=== PATIENT | female | born 2000 | race Caucasian/White ===

== ENCOUNTER 2021-01-31 19:51 | Emergency (ER) | payer BC ==
[2021-01-31 21:14] LABS: Appearance CLOUDY (CLEAR); Bacteria FEW /HPF (NEGATIVE); Bilirubin NEGATIVE (NEGATIVE); Blood SMALL Ery/ul (0-5); Epithelial Cells RARE /HPF (FEW); Glucose NEGATIVE (NEGATIVE); Ketones NEGATIVE (NEGATIVE); Leukocyte Esterase LARGE (NEGATIVE); Nitrite NEGATIVE (NEGATIVE); Non-Squamous Epithelial Cells RARE /HPF (FEW); Protein,Urine Dip 100 (Negative); Specific Gravity 1.006 (1.005-1.025); Urobilinogen NEGATIVE mg/dL (0-1); WBC >100 /HPF (0-5)
[2021-01-31] MEDS ORDERED: Macrobid 100MG Capsule PO ONE (21:19)
[2021-01-31] MEDS ORDERED: PYRIDIUM 200 MG PO ONE (21:19)
--- NOTE | 2021-01-31 21:26 | ERPHSYRPT ---
- History of Present Illness Time Seen by Provider: 01/31/21 21:26 Source: patient Exam Limitations: no limitations Patient Subjective Stated Complaint: pt states she has been having pain in her lower back since yesterday and bladder pain today. states she has frequency and pain with urination Triage Nursing Assessment: pt alert and oriented, answers questions approp. pt ambulatory with steady gait noted. respirations nonlabored. skin pink warm and dry. urine yellow, cloudy with sediment Physician History: Patient is a 20-year-old female presents to our emergency department with complaints of urinary frequency, dysuria and mild low back pain. Symptoms started yesterday. Low back pain started today. No radiation. No fever. No nausea or vomiting. No abdominal pain. Symptoms are mild to moderate in intensity. Patient declined pain medication. Patient is otherwise healthy. She voices no other complaints concerns at this time. Timing/Duration: yesterday Severity: mild Modifying Factors: Improves With: nothing Associated Symptoms: No nausea, No vomiting, No abdominal pain, No shortness of breath, No heartburn, No diaphoresis, No cough, No chills, No chest pain, No fever, No headaches, No malaise, No syncope, No weakness Allergies/Adverse Reactions: No Known Drug Allergies Allergy (Verified 01/31/21 21:06) Home Medications: Norgestimate-Ethinyl Estradiol [Tri-Lo-Jazmine Tablet] 1 each PO DAILY 01/31/21 [History] Hx Tetanus, Diphtheria Vaccination/Date Given: Yes Hx Influenza Vaccination/Date Given: No Hx Pneumococcal Vaccination/Date Given: No Immunizations Up to Date: Yes Travel Risk - International Travel Have you traveled outside of the country in past 3 weeks: No - Coronavirus Screening Are you exhibiting any of the following symptoms?: No Close contact with a COVID-19 positive Pt in past 14-21 Days: No - Vaccine Status Have you recieved a Covid-19 vaccination: No - Review of Systems Constitutional: No Symptoms, No Fever, No Chills Eyes: No Symptoms Ears, Nose, & Throat: No Symptoms Respiratory: No Symptoms, No Cough, No Dyspnea Cardiac: No Symptoms, No Chest Pain, No Edema, No Syncope Abdominal/Gastrointestinal: No Symptoms, No Abdominal Pain, No Nausea, No Vomiting, No Diarrhea Genitourinary Symptoms: No Symptoms, No Dysuria Musculoskeletal: No Symptoms, No Back Pain, No Neck Pain Skin: No Symptoms, No Rash Neurological: No Symptoms, No Dizziness, No Focal Weakness, No Sensory Changes Psychological: No Symptoms Endocrine: No Symptoms Hematologic/Lymphatic: No Symptoms Immunological/Allergic: No Symptoms All Other Systems: Reviewed and Negative - Past Medical History Pertinent Past Medical History: No - Past Surgical History Past Surgical History: Yes Gastrointestinal: Appendectomy - Social History Smoking Status: Never smoker Exposure to second hand smoke: Yes Drug Use: none Patient Lives Alone: No - Female History Hx Last Menstrual Period: 1 week Hx Now: No - Nursing Vital Signs Nursing Vital Signs: Initial Vital Signs Temperature 98.9 F 01/31/21 20:57 Pulse Rate 105 H 01/31/21 20:57 Respiratory Rate 18 01/31/21 20:57 Blood Pressure 117/64 01/31/21 20:57 O2 Sat by Pulse Oximetry 100 01/31/21 20:57 Pain Scale Pain Intensity 7 - Physical Exam General Appearance: no apparent distress, alert Eye Exam: PERRL/EOMI, eyes nml inspection Ears, Nose, Throat Exam: normal ENT inspection, TMs normal, pharynx normal, moist mucous membranes Neck Exam: normal inspection, non-tender, supple, full range of motion Respiratory Exam: normal breath sounds, lungs clear, No respiratory distress Cardiovascular Exam: regular rate/rhythm, normal heart sounds, normal peripheral pulses Gastrointestinal/Abdomen Exam: soft, normal bowel sounds, other (Suprapubic tenderness to palpation. No CVA tenderness to palpation.), No tenderness, No m ass Back Exam: normal inspection, normal range of motion, No CVA tenderness, No vertebral tenderness Extremity Exam: normal inspection, normal range of motion, pelvis stable Neurologic Exam: alert, oriented x 3, cooperative, normal mood/affect, nml cerebellar function, No motor deficits Skin Exam: normal color, warm, dry, No rash Lymphatic Exam: No adenopathy SpO2 Interpretation: normal SpO2: 100 O2 Delivery: Room Air - Course Nursing assessment & vital signs reviewed: Yes Ordered Tests: Active Orders 24 hr Category Date Time Status CULTURE,URINE Stat Lab 01/31/21 20:59 Received HCG,QUALITATIVE URINE Stat Lab 01/31/21 20:59 Completed UA W/RFX UR CULTURE Stat Lab 01/31/21 20:59 Completed Medication Summary Discontinued Medications Generic Name Dose Route Start Last Admin Trade Name Freq PRN Reason Stop Dose Admin Nitrofurantoin Macrocrystals 100 mg 01/31/21 21:19 Macrobid 100mg Capsule PO 01/31/21 21:20 STAT ONE Phenazopyridine HCl 100 mg 01/31/21 21:19 Pyridium 200 Mg PO 01/31/21 21:20 STAT ONE Lab/Rad Data: Laboratory Results 01/31/21 01/31/21 Range/Units 20:59 20:59 Urine Color YELLOW (YELLOW) Urine Appearance CLOUDY (CLEAR) Urine pH 8.0 (5-6) Ur Specific [place] 1.006 (1.005-1.025) Urine Protein 100 (Negative) Urine Ketones NEGATIVE (NEGATIVE) Urine Blood SMALL (0-5) Jhony/ul Urine Nitrite NEGATIVE (NEGATIVE) Urine Bilirubin NEGATIVE (NEGATIVE) Urine Urobilinogen NEGATIVE (0-1) mg/dL Ur Leukocyte Esterase LARGE (NEGATIVE) Urine WBC (Auto) >100 (0-5) /HPF Urine RBC (Auto) 16-25 (0-2) /HPF U Epithel Cells (Auto) RARE (FEW) /HPF Urine Bacteria (Auto) FEW (NEGATIVE) /HPF U Non-Squamous Epi Cells RARE (FEW) /HPF Urine Culture Reflexed YES (NO) Urine Glucose NEGATIVE (NEGATIVE) mg/dL Urine HCG, Qual NEGATIVE (Negative) - Progress Progress: improved Progress Note: Patient received a dose of Macrobid and Pyridium in our ED. a prescription for Macrobid was forwarded to patient's pharmacy. Patient will take her medications up in the morning. Patient voices no other complaints at this time. Patient states is ready for discharge. Will discharge at this time. Urine cultures pending. Patient agrees to follow-up with primary care doctor within 48 hours for reevaluation. 01/31/21 21:31 01/31/21 21:32 Counseled pt/family regarding: lab results, diagnosis, need for follow-up - Departure Departure Disposition: Home Clinical Impression: UTI (urinary tract infection) Condition: Stable Critical Care Time: No Additional Instructions: Discharge/Care Plan RAQUEL ANDERSON was seen on 01/31/21 in the Emergency Room. The patient was counseled regarding Diagnosis,Lab results, Imaging studies, need for follow up and when to return to the Emergency Room. Prescriptions given: Discharge Note I have spoken with the patient and/or caregivers. I have explained the patient's condition, diagnosis and treatment plan based on the information available to me at this time. I have answered the patient's and/or caregiver's questions and addressed any concerns. The patient and/or caregivers have as good understanding of the patient's diagnosis, condition and treatment plan as can be expected at this point. The vital signs have been stable. The patient's condition is stable and appropriate for discharge from the emergency department. The patient will pursue further outpatient evaluation with the primary care physician or other designated or consulting physician as outlined in the discharge instructions. The patient and/or caregivers are agreeable to this plan of care and follow-up instructions have been explained in detail. The patient and/or caregivers have received these instruction. The patient/and or caregivers are aware that any significant change in condition or worsening of symptoms should prompt an immediate return to this or the closest emergency department or call 911. Prescriptions: Nitrofurantoin Macro 100 mg [Macrobid 100MG Capsule] 100 mg PO BID 7 Days #14 capsule
[2021-01-31] MEDS ORDERED: PYRIDIUM 200 MG ONE (21:27)
[2021-01-31] MEDS ORDERED: Macrobid 100MG Capsule ONE (21:27)
[2021-01-31 21:47] VITALS: PULSE 91
[2021-01-31 22:11] VITALS: BP 124/58; O2SAT 97
== END 2021-01-31 22:06 | disposition home or self-care (01) ==
LOC: ED 19:51
DX: N39.0 Urinary tract infection, site not specified (principal)
CPT/HCPCS: 81001; 84703; 87077; 87086; 87186; 99283; A9270-GY

== ENCOUNTER 2022-07-04 19:29 | Emergency (ER) | payer BC ==
[2022-07-04] MEDS ORDERED: Sodium Chloride 0.9% 1000 ML 1,000 ML IV STA (19:45)
[2022-07-04] MEDS ORDERED: Sodium Chloride 0.9% 1000 ML 1,000 ML ONE (19:53)
[2022-07-04 19:59] LABS: Absolute Neutrophil Ct (ANC) 8.94 x10^3/uL (1.4-6.9); Basophil (Absolute #) 0.05 x10^3/uL (0-0.4); Eosinophil % 0.4 % (0.00-5.0); Eosinophil (Absolute #) 0.05 x10^3/uL (0-0.5); Hematocrit 43.1 % (35-47); Hemoglobin 14.2 g/dL (12.0-16.0); Lymphocyte (Absolute #) 2.37 x10^3/uL (1.0-4.6); Lymphocytes % 19.4 % (24.0-44.0); Mean Cell Volume 88.1 fL (78-100); Mean Corpuscular Hgb Concent. 32.9 g/dL (32-36); Mean Platelet Volume 9.6 fL (7.5-11.0); Monocyte (Absolute #) 0.73 x10^3/uL (0.0-1.3); Neutrophil % 73.2 % (36.0-66.0); Platelet Count 368 x10^3/uL (150-450); Red Blood Count 4.89 x10^6/uL (4.1-5.4); Red Cell Distribution Width 12.1 % (11.5-14.0); White Blood Count 12.2 x10^3/uL (4.0-10.5)
[2022-07-04 20:06] LABS: Appearance CLEAR (CLEAR); Bilirubin NEGATIVE (NEGATIVE); Dipstick done @ ? MAIN LAB; Glucose NEGATIVE (NEGATIVE); Ketones NEGATIVE (NEGATIVE); Nitrite NEGATIVE (NEGATIVE); Protein,Urine Dip 30 (Negative); RBC MODERATE Ery/ul (0-5); Urobilinogen 0.2 mg/dL (0-1)
[2022-07-04 20:08] LABS: Bacteria RARE /HPF (NEGATIVE); Epithelial Cells FEW /HPF (FEW); Mucus SLIGHT /HPF (NEGATIVE); RBC 0-2 /HPF (0-2)
[2022-07-04 20:14] LABS: Urine Cultured Indicated? YES
[2022-07-04 20:18] LABS: ALBUMIN 4.8 g/dL (3.5-5.0); ALKALINE PHOSPHATASE 163 U/L (38-126); ANION GAP 14.7 MEQ/L (5-15); BLOOD UREA NITROGEN 11 mg/dL (7-17); CHLORIDE 104 mmol/L (98-107); Calcium 9.4 mg/dL (8.4-10.2); Carbon Dioxide 22 mmol/L (22-30); EST GLOMERULAR FILTRATION RATE > 60.0 ML/MIN; Glucose 98 mg/dL (74-106); SGOT/AST 43 U/L (14-36); SGPT/ALT 25 U/L (0-35); SODIUM 139 mmol/L (137-145); Total Protein 8.7 g/dL (6.3-8.2)
[2022-07-04] MEDS ORDERED: ROCEPHIN 1 Gm-D5w 50 ml Bag** 1 G/50 ML IVPB IV STA (20:19)
[2022-07-04] MEDS ORDERED: Klor Con PO ONE ×2 (20:21→20:26)
[2022-07-04] MEDS ORDERED: ROCEPHIN 1 Gm-D5w 50 ml Bag** 1 G/50 ML IVPB IV ONE (20:26)
--- NOTE | 2022-07-04 20:26 | ERPHSYRPT ---
- History of Present Illness Time Seen by Provider: 07/04/22 19:45 Source: patient Exam Limitations: no limitations Patient Subjective Stated Complaint: abd pain, tender, diarrhea, vomiting x1 yesterday Triage Nursing Assessment: pt ambulated into ER without diff. Pt saw Dr. Savage today for abd pain and he informed her that she had a cyst that ruptured. Pt continues to have abd pain/tenderness, diarrhea x5 today, nausea, vomited x1 yesterday. Pt is concerned and just wants to make sure there's nothing else going on in her abd. Abd lg, soft with active bs x4 quad, tender on palpation. Physician History: Patient is 22-year-old female presents to emergency department for evaluation of abdominal pain x5 days. Patient has been experiencing some diarrhea. She had 1 bout of emesis today. Patient followed up with her primary care doctor today. Patient was advised that she may have had experienced a ruptured cyst. Patient is here because she wants to be sure that there is nothing more serious going on. No fever. Symptoms are mild to moderate in intensity. No specific worsening or improving factors. Patient states the pain is suprapubic and periumbilical. She denies a history of the same. She voices no other complaints or concerns at this time. Portions of this note were created with voice recognition technology. There may be grammatical, spelling, punctuation or sound alike errors Timing/Duration: day(s) (5 days) Severity: moderate Modifying Factors: Improves With: nothing Associated Symptoms: nausea, vomiting Allergies/Adverse Reactions: No Known Drug Allergies Allergy (Verified 07/04/22 19:49) Hx Tetanus, Diphtheria Vaccination/Date Given: Yes Hx Influenza Vaccination/Date Given: No Hx Pneumococcal Vaccination/Date Given: No Immunizations Up to Date: Yes Travel Risk - International Travel Have you traveled outside of the country in past 3 weeks: No - Coronavirus Screening Are you exhibiting any of the following symptoms?: Yes Symptoms: Vomiting/Diarrhea Close contact with a COVID-19 positive Pt in past 14-21 Days: No - Vaccine Status Have you recieved a Covid-19 vaccination: Yes Communications Controller: Moderna - Vaccination Dates Date of 2cond Vaccination (if applicable): . - Review of Systems Constitutional: No Symptoms, No Fever, No Chills Eyes: No Symptoms Ears, Nose, & Throat: No Symptoms Respiratory: No Symptoms, No Cough, No Dyspnea Cardiac: No Symptoms, No Chest Pain, No Edema, No Syncope Abdominal/Gastrointestinal: No Symptoms, No Abdominal Pain, No Nausea, No Vomiting, No Diarrhea Genitourinary Symptoms: No Symptoms, No Dysuria Musculoskeletal: No Symptoms, No Back Pain, No Neck Pain Skin: No Symptoms, No Rash Neurological: No Symptoms, No Dizziness, No Focal Weakness, No Sensory Changes Psychological: No Symptoms Endocrine: No Symptoms Hematologic/Lymphatic: No Symptoms Immunological/Allergic: No Symptoms All Other Systems: Reviewed and Negative - Past Medical History Pertinent Past Medical History: No - Past Surgical History Past Surgical History: Yes Gastrointestinal: Appendectomy - Social History Smoking Status: Never smoker Exposure to second hand smoke: Yes Drug Use: none Patient Lives Alone: No - Female History Hx Last Menstrual Period: 06/07/22 Hx Now: No - Nursing Vital Signs Nursing Vital Signs: Initial Vital Signs Temperature 97.0 F 07/04/22 19:37 Pulse Rate 107 H 07/04/22 19:37 Respiratory Rate 18 07/04/22 19:37 Blood Pressure 144/85 07/04/22 19:37 O2 Sat by Pulse Oximetry 99 07/04/22 19:37 Pain Scale Pain Intensity 3 - Physical Exam General Appearance: no apparent distress, alert Eye Exam: PERRL/EOMI, eyes nml inspection Ears, Nose, Throat Exam: normal ENT inspection, TMs normal, pharynx normal, moist mucous membranes Neck Exam: normal inspection, non-tender, supple, full range of motion Respiratory Exam: normal breath sounds, lungs clear, airway intact, No respiratory distress Cardiovascular Exam: regular rate/rhythm, normal heart sounds, normal peripheral pulses Gastrointestinal/Abdomen Exam: soft, normal bowel sounds, No tenderness, No mass Back Exam: normal inspection, normal range of motion, No CVA tenderness, No vertebral tenderness Extremity Exam: normal inspection, normal range of motion, pelvis stable Neurologic Exam: alert, oriented x 3, cooperative, normal mood/affect, nml cerebellar function, nml station & gait, sensation nml, No motor deficits Skin Exam: normal color, warm, dry, No rash Lymphatic Exam: No adenopathy SpO2 Interpretation: normal SpO2: 99 O2 Delivery: Room Air - Course Nursing assessment & vital signs reviewed: Yes - CT Exams Abdomen/Pelvis CT Interpretation: Tele-radiologist Report (No comps. Normal abdomen pelvis with incidental intrauterine IUD.) Ordered Tests: Active Orders 24 hr Category Date Time Status ABDOMEN AND PELVIS W/0 CONTRAS [CT] Stat Exams 07/04/22 19:44 Taken CBC W DIFF Stat Lab 07/04/22 19:56 Completed CMP Stat Lab 07/04/22 19:56 Completed CULTURE,URINE Stat Lab 07/04/22 19:56 Received HCG,QUALITATIVE URINE Stat Lab 07/04/22 19:56 Completed UA W/RFX CULTURE Stat Lab 07/04/22 19:56 Completed Medication Summary Generic Name Dose Route Start Last Admin Trade Name Freq PRN Reason Stop Dose Admin Magnesium Sulfate/Dextrose 100 mls @ 100 mls/hr 07/04/22 20:30 07/04/22 20:56 Magnesium 1 Gm / 100 Ml D5w IV 07/04/22 22:29 100 mls/hr Q1H LYUBOV Administration Discontinued Medications Generic Name Dose Route Start Last Admin Trade Name Freq PRN Reason Stop Dose Admin Sodium Chloride 1,000 mls @ 999 mls/hr 07/04/22 19:45 07/04/22 20:57 Sodium Chloride 0.9% 1000 Ml IV 07/04/22 20:45 Infused .Q1H1M STA Infusion Sodium Chloride Confirm 07/04/22 19:53 Sodium Chloride 0.9% 1000 Ml Administered 07/04/22 19:54 Dose 1,000 mls @ ud .ROUTE .STK-MED ONE Ceftriaxone Sodium/Dextrose 1 g in 50 mls @ 100 mls/hr 07/04/22 20:19 07/04/22 20:57 Rocephin 1 Gm-D5w 50 Ml Bag IV 07/04/22 20:48 Infused STAT STA Infusion Ceftriaxone Sodium/Dextrose Confirm 07/04/22 20:26 Rocephin 1 Gm-D5w 50 Ml Bag Administered 07/04/22 20:27 Dose 1 g in 50 mls @ ud IV .STK-MED ONE Potassium Chloride 40 meq 07/04/22 20:21 07/04/22 20:26 Potassium Chloride Tab 10 Meq Tab PO 07/04/22 20:22 40 meq STAT ONE Administration Potassium Chloride Confirm 07/04/22 20:26 Potassium Chloride Tab 10 Meq Tab Administered 07/04/22 20:27 Dose 40 meq PO .STK-MED ONE Lab/Rad Data: Laboratory Result Diagrams 07/04/22 19:56 07/04/22 19:56 Laboratory Results 07/04/22 07/04/22 07/04/22 Range/Units 19:56 19:56 19:56 WBC 12.2 H (4.0-10.5) x10^3/uL RBC 4.89 (4.1-5.4) x10^6/uL Hgb 14.2 (12.0-16.0) g/dL Hct 43.1 (35-47) % MCV 88.1 (78-100) fL MCH 29.0 (26-32) pg MCHC 32.9 (32-36) g/dL RDW 12.1 (11.5-14.0) % Plt Count 368 (150-450) x10^3/uL MPV 9.6 (7.5-11.0) fL Gran % 73.2 H (36.0-66.0) % Immature Gran % (Auto) 0.6 H (0.00-0.4) % Nucleat RBC Rel Count 0.0 (0.00-0.1) % Eos # (Auto) 0.05 (0-0.5) x10^3/uL Immature Gran # (Auto) 0.07 H (0.00-0.03) x10^3u/L Absolute Lymphs (auto) 2.37 (1.0-4.6) x10^3/uL Absolute Monos (auto) 0.73 (0.0-1.3) x10^3/uL Absolute Nucleated RBC 0.00 (0.00-0.01) x10^3u/L Lymphocytes % 19.4 L (24.0-44.0) % Monocytes % 6.0 (0.0-12.0) % Eosinophils % 0.4 (0.00-5.0) % Basophils % 0.4 (0.0-0.4) % Absolute Granulocytes 8.94 H (1.4-6.9) x10^3/uL Basophils # 0.05 (0-0.4) x10^3/uL Sodium 139 (137-145) mmol/L Potassium 3.0 L* (3.5-5.1) mmol/L Chloride 104 (98-107) mmol/L Carbon Dioxide 22 (22-30) mmol/L Anion Gap 14.7 (5-15) MEQ/L BUN 11 (7-17) mg/dL Creatinine 0.70 (0.52-1.04) mg/dL Estimated GFR > 60.0 ML/MIN Glucose 98 (74-106) mg/dL Calcium 9.4 (8.4-10.2) mg/dL Total Bilirubin 0.50 (0.2-1.3) mg/dL AST 43 H (14-36) U/L ALT 25 (0-35) U/L Alkaline Phosphatase 163 H (38-126) U/L Serum Total Protein 8.7 H (6.3-8.2) g/dL Albumin 4.8 (3.5-5.0) g/dL Urinalys Dipstick Clnc MAIN LAB Urine Color YELLOW (YELLOW) Urine Appearance CLEAR (CLEAR) Urine pH 7.0 (5-6) Ur Specific [place] 1.020 (1.005-1.025) POC Urine Protein Conf 30 (Negative) Urine Ketones NEGATIVE (NEGATIVE) Urine Nitrite NEGATIVE (NEGATIVE) Urine Bilirubin NEGATIVE (NEGATIVE) Urine Urobilinogen 0.2 (0-1) mg/dL Urine Leukocytes MODERATE (NEGATIVE) Urine WBC (Auto) 6-10 (0-5) /HPF Urine RBC (Auto) 0-2 (0-2) /HPF U Epithel Cells (Auto) FEW (FEW) /HPF Urine Bacteria (Auto) RARE (NEGATIVE) /HPF Urine RBC MODERATE (0-5) Jhony/ul Urine Mucus (Auto) SLIGHT (NEGATIVE) /HPF Ur Culture Indicated? YES Urine Glucose NEGATIVE (NEGATIVE) mg/dL Urine HCG, Qual (Negative) 07/04/22 Range/Units 19:56 WBC (4.0-10.5) x10^3/uL RBC (4.1-5.4) x10^6/uL Hgb (12.0-16.0) g/dL Hct (35-47) % MCV (78-100) fL MCH (26-32) pg MCHC (32-36) g/dL RDW (11.5-14.0) % Plt Count (150-450) x10^3/uL MPV (7.5-11.0) fL Gran % (36.0-66.0) % Immature Gran % (Auto) (0.00-0.4) % Nucleat RBC Rel Count (0.00-0.1) % Eos # (Auto) (0-0.5) x10^3/uL Immature Gran # (Auto) (0.00-0.03) x10^3u/L Absolute Lymphs (auto) (1.0-4.6) x10^3/uL Absolute Monos (auto) (0.0-1.3) x10^3/uL Absolute Nucleated RBC (0.00-0.01) x10^3u/L Lymphocytes % (24.0-44.0) % Monocytes % (0.0-12.0) % Eosinophils % (0.00-5.0) % Basophils % (0.0-0.4) % Absolute Granulocytes (1.4-6.9) x10^3/uL Basophils # (0-0.4) x10^3/uL Sodium (137-145) mmol/L Potassium (3.5-5.1) mmol/L Chloride (98-107) mmol/L Carbon Dioxide (22-30) mmol/L Anion Gap (5-15) MEQ/L BUN (7-17) mg/dL Creatinine (0.52-1.04) mg/dL Estimated GFR ML/MIN Glucose (74-106) mg/dL Calcium (8.4-10.2) mg/dL Total Bilirubin (0.2-1.3) mg/dL AST (14-36) U/L ALT (0-35) U/L Alkaline Phosphatase (38-126) U/L Serum Total Protein (6.3-8.2) g/dL Albumin (3.5-5.0) g/dL Urinalys Dipstick Clnc Urine Color (YELLOW) Urine Appearance (CLEAR) Urine pH (5-6) Ur Specific [place] (1.005-1.025) POC Urine Protein Conf (Negative) Urine Ketones (NEGATIVE) Urine Nitrite (NEGATIVE) Urine Bilirubin (NEGATIVE) Urine Urobilinogen (0-1) mg/dL Urine Leukocytes (NEGATIVE) Urine WBC (Auto) (0-5) /HPF Urine RBC (Auto) (0-2) /HPF U Epithel Cells (Auto) (FEW) /HPF Urine Bacteria (Auto) (NEGATIVE) /HPF Urine RBC (0-5) Jhony/ul Urine Mucus (Auto) (NEGATIVE) /HPF Ur Culture Indicated? Urine Glucose (NEGATIVE) mg/dL Urine HCG, Qual NEGATIVE (Negative) - Progress Progress: improved Progress Note: Patient reassessed. She feels much better. CT abdomen pelvis negative. Potassium was low. Patient received oral potassium replacement. UA positive for UTI. Patient received a dose of Rocephin in our ED. A prescription for Keflex was forwarded to patient's pharmacy. No indication for further work-up at this time. Will discharge home. Patient agrees to follow-up with primary care doctor within 48 hours for evaluation. Portions of this note were created with voice recognition technology. There may be grammatical, spelling, punctuation or sound alike errors 07/04/22 21:04 Counseled pt/family regarding: lab results, diagnosis, need for follow-up, rad results - Departure Departure Disposition: Home Clinical Impression: UTI (urinary tract infection), Leukocytosis, Hypokalemia, Diarrhea Condition: Stable Critical Care Time: No Referrals: STAS SAVAGE MD [Primary Care Provider] - Follow up/PCP as directed Additional Instructions: Discharge/Care Plan RAQUEL ANDERSON was seen on 07/04/22 in the Emergency Room. The patient was counseled regarding Diagnosis,Lab results, Imaging studies, need for follow up and when to return to the Emergency Room. Prescriptions given: Discharge Note I have spoken with the patient and/or caregivers. I have explained the patient's condition, diagnosis and treatment plan based on the information available to me at this time. I have answered the patient's and/or caregiver's questions and addressed any concerns. The patient and/or caregivers have as good understanding of the patient's diagnosis, condition and treatment plan as can be expected at this point. The vital signs have been stable. The patient's condition is stable and appropriate for discharge from the emergency department. The patient will pursue further outpatient evaluation with the primary care physician or other designated or consulting physician as outlined in the discharge instructions. The patient and/or caregivers are agreeable to this plan of care and follow-up instructions have been explained in detail. The patient and/or caregivers have received these instruction. The patient/and or caregivers are aware that any significant change in condition or worsening of symptoms should prompt an immediate return to this or the closest emergency department or call 911. Prescriptions: Cephalexin Mh 500 mg [Keflex 500 mg] 500 mg PO TID #21 cap
[2022-07-04] MEDS: Magnesium 1 Gm / 100 Ml D5W*** 100 ML IV SCH ×2 (20:56→21:25)
[2022-07-04] MEDS ORDERED: Magnesium 1 Gm / 100 Ml D5W*** 100 ML IV ONE ×2 (20:56→21:24)
[2022-07-04 21:56] VITALS: BP 107/67; PULSE 77; O2SAT 100
--- NOTE | 2022-07-05 08:48 | XRAY ---
Indication: Bilateral lower quadrant pain. Multiple contiguous axial images obtained through the abdomen and pelvis without contrast. Comparison: None Lung bases clear. Heart not enlarged. Stomach is mildly distended with food/fluid. Noncontrasted stomach and bowel loops appear nonobstructed. Previous appendectomy. Retroverted uterus with IUD in situ. No free fluid/air. Remaining liver, gallbladder, pancreas, spleen, adrenal glands, kidneys, ureters, bladder, uterus, and aorta are unremarkable for noncontrast exam. Osseous structures intact. No ventral or inguinal hernias. Impression: CT abdomen/pelvis without contrast exam is negative.
== END 2022-07-04 21:55 | disposition home or self-care (01) ==
LOC: ED 19:29
DX: N39.0 Urinary tract infection, site not specified (principal); D72.829 Elevated white blood cell count, unspecified; E87.6 Hypokalemia; R19.7 Diarrhea, unspecified; R10.33 Periumbilical pain; R10.2 Pelvic and perineal pain
CPT/HCPCS: 36000; 36415; 74176; 80053; 81015; 81025; 85025; 87086; 96365; 96367; 99284; J0696; J3475; A9270-GY

== ENCOUNTER 2022-09-17 12:09 | Emergency (ER) | payer BC ==
--- NOTE | 2022-09-17 12:44 | ERPHSYRPT ---
- History of Present Illness Historian: patient Exam Limitations: no limitations Patient Subjective Stated Complaint: pt here for lower back pain and abd pain for a couple days, was dx at clinic yesterday with UTI, pt had IUD removed 09/14 and is on antibotics. Triage Nursing Assessment: pt alert, resp easy, skin w/d/p. walked in, face mask in place, abd soft, no pain with urination Physician History: 22 yo wf w duy-umbilical pain x 6 days. Pain is 6/10 and described as an ache. It does not radiate. She had her IUD removed on 09/14/22 and was started on Bactrim yesterday after walk in clinic appointment where she was diagnosed w a UTI. Pt has N/V/D wo dysuria/hematuria/hematemesis/hematochezia/melena/fever. She has global lumbar pain. Pt has had her appendix removed. Cough/Fever/Coryza are all denied. Timing/Duration: day(s) (6 days) Quality: aching Abdominal Pain Onset Location: periumbilical Pain Radiation: no radiation, shoulder Severity of Pain-Current: moderate Modifying Factors: Improves With: nothing Associated Symptoms: denies symptoms, diarrhea, nausea, vomiting Previous symptoms: no prior history Allergies/Adverse Reactions: No Known Drug Allergies Allergy (Verified 07/04/22 19:49) Hx Tetanus, Diphtheria Vaccination/Date Given: Yes Hx Influenza Vaccination/Date Given: No Hx Pneumococcal Vaccination/Date Given: No Immunizations Up to Date: Yes Travel Risk - International Travel Have you traveled outside of the country in past 3 weeks: No - Coronavirus Screening Are you exhibiting any of the following symptoms?: No Close contact with a COVID-19 positive Pt in past 14-21 Days: No - Vaccine Status Have you recieved a Covid-19 vaccination: Yes [employer]: Moderna - Vaccination Dates Date of 2cond Vaccination (if applicable): 2020 - Review of Systems Constitutional: No Symptoms Eyes: No Symptoms Ears, Nose, & Throat: No Symptoms Respiratory: No Symptoms Cardiac: No Symptoms Abdominal/Gastrointestinal: No Symptoms, Abdominal Pain, Nausea, Vomiting, Diarrhea Genitourinary Symptoms: No Symptoms Musculoskeletal: No Symptoms Skin: No Symptoms Neurological: No Symptoms Psychological: No Symptoms Endocrine: No Symptoms, Excessive Sweating Immunological/Allergic: No Symptoms - Past Medical History Pertinent Past Medical History: No - Past Surgical History Past Surgical History: Yes Gastrointestinal: Appendectomy - Social History Smoking Status: Never smoker Exposure to second hand smoke: Yes Drug Use: none Patient Lives Alone: No - Female History Hx Last Menstrual Period: unsure Hx Now: No - Nursing Vital Signs Nursing Vital Signs: Initial Vital Signs Temperature 97.0 F 09/17/22 12:19 Pulse Rate 95 H 09/17/22 12:19 Respiratory Rate 18 09/17/22 12:19 Blood Pressure 123/73 09/17/22 12:19 O2 Sat by Pulse Oximetry 98 09/17/22 12:19 Pain Scale Pain Intensity 4 WNL - Physical Exam General Appearance: no apparent distress (In pain) Eye Exam: PERRL/EOMI, eyes nml inspection Ears, Nose, Throat Exam: normal ENT inspection, TMs normal, pharynx normal, moist mucous membranes Neck Exam: normal inspection, non-tender, supple, full range of motion Respiratory Exam: normal breath sounds, lungs clear, airway intact Cardiovascular Exam: regular rate/rhythm, normal heart sounds, normal peripheral pulses, capillary refill <2 sec, No murmur Gastrointestinal/Abdomen Exam: soft, normal bowel sounds, tenderness (Moderate duy-umbilical TTP wo guarding or rebound) Back Exam: CVA tenderness (Mild B), vertebral tenderness (Mild lumbar TTP) Extremity Exam: normal inspection, normal range of motion Neurologic Exam: alert, oriented x 3, cooperative, 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, normal mood/affect, nml cerebellar function, nml station & gait, sensation nml Skin Exam: normal color, warm, dry Lymphatic Exam: No adenopathy SpO2 Interpretation: normal SpO2: 98 O2 Delivery: Room Air - Course Nursing assessment & vital signs reviewed: Yes - CT Exams Abdomen/Pelvis CT Interpretation: Tele-radiologist Report (Nonspecific mild posterior pelvic peritoneal fluid) Ordered Tests: Active Orders 24 hr Category Date Time Status ABDOMEN AND PELVIS W/0 CONTRAS [CT] Stat Exams 09/17/22 13:56 Completed AMYLASE Stat Lab 09/17/22 12:33 Completed CBC W DIFF Stat Lab 09/17/22 12:33 Completed CMP Stat Lab 09/17/22 12:33 Completed CULTURE,URINE Stat Lab 09/17/22 12:43 Received HCG QUALITATIVE,SERUM Stat Lab 09/17/22 12:45 Completed LIPASE Stat Lab 09/17/22 12:33 Completed Lactic Acid Stat Lab 09/17/22 13:10 Completed UA W/RFX UR CULTURE Stat Lab 09/17/22 12:43 Completed Medication Summary Discontinued Medications Generic Name Dose Route Start Last Admin Trade Name Lucy PRN Reason Stop Dose Admin Sodium Chloride 1,000 mls @ 999 mls/hr 09/17/22 13:10 09/17/22 14:26 Sodium Chloride 0.9% 1000 Ml IV 09/17/22 14:10 Infused .Q1H1M STA Infusion Sodium Chloride Confirm 09/17/22 13:19 Sodium Chloride 0.9% 1000 Ml Administered 09/17/22 13:20 Dose 1,000 mls @ ud .ROUTE .STK-MED ONE Ceftriaxone Sodium/Dextrose 1 g in 50 mls @ 100 mls/hr 09/17/22 14:12 0 09/17/22 14:46 Rocephin 1 Gm-D5w 50 Ml Bag IV 09/17/22 14:41 Infused STAT STA Infusion Ceftriaxone Sodium/Dextrose Confirm 09/17/22 14:12 Rocephin 1 Gm-D5w 50 Ml Bag Administered 09/17/22 14:13 Dose 1 g in 50 mls @ ud IV .STK-MED ONE Ketorolac Tromethamine 15 mg 09/17/22 12:49 09/17/22 12:54 Ketorolac Tromethamine 30 Mg/Ml Inj IV 09/17/22 12:50 15 mg STAT ONE Administration Ketorolac Tromethamine Confirm 09/17/22 12:51 Ketorolac Tromethamine 30 Mg/Ml Inj Administered 09/17/22 12:52 Dose 30 mg .ROUTE .STK-MED ONE Ondansetron HCl 4 mg 09/17/22 12:49 09/17/22 12:53 Ondansetron Hcl 4 Mg/2 Ml Vial IV 09/17/22 12:50 4 mg STAT ONE Administration Ondansetron HCl Confirm 09/17/22 12:51 Ondansetron Hcl 4 Mg/2 Ml Vial Administered 09/17/22 12:52 Dose 4 mg .ROUTE .STK-MED ONE Lab/Rad Data: Laboratory Result Diagrams 09/17/22 12:33 09/17/22 12:33 Laboratory Results 09/17/22 09/17/22 09/17/22 Range/Units 13:10 12:52 12:45 WBC (4.0-10.5) x10^3/uL RBC (4.1-5.4) x10^6/uL Hgb (12.0-16.0) g/dL Hct (35-47) % MCV (78-100) fL MCH (26-32) pg MCHC (32-36) g/dL RDW (11.5-14.0) % Plt Count (150-450) x10^3/uL MPV (7.5-11.0) fL Gran % (36.0-66.0) % Immature Gran % (Auto) (0.00-0.4) % Nucleat RBC Rel Count (0.00-0.1) % Eos # (Auto) (0-0.5) x10^3/uL Immature Gran # (Auto) (0.00-0.03) x10^3u/L Absolute Lymphs (auto) (1.0-4.6) x10^3/uL Absolute Monos (auto) (0.0-1.3) x10^3/uL Absolute Nucleated RBC (0.00-0.01) x10^3u/L Lymphocytes % (24.0-44.0) % Monocytes % (0.0-12.0) % Eosinophils % (0.00-5.0) % Basophils % (0.0-0.4) % Absolute Granulocytes (1.4-6.9) x10^3/uL Basophils # (0-0.4) x10^3/uL Sodium (137-145) mmol/L Potassium (3.5-5.1) mmol/L Chloride (98-107) mmol/L Carbon Dioxide (22-30) mmol/L Anion Gap (5-15) MEQ/L BUN (7-17) mg/dL Creatinine (0.52-1.04) mg/dL Estimated GFR ML/MIN Glucose (74-106) mg/dL Lactic Acid 1.1 (0.4-2.0) Calcium (8.4-10.2) mg/dL Total Bilirubin (0.2-1.3) mg/dL AST (14-36) U/L ALT (0-35) U/L Alkaline Phosphatase (38-126) U/L Serum Total Protein (6.3-8.2) g/dL Albumin (3.5-5.0) g/dL Amylase (30-110) U/L Lipase (23-300) U/L Serum , Qual NEGATIVE (Negative) Urine Color (Yellow) Urine Appearance (Clear) Urine pH (4.6-8.0) Ur Specific [place] (1.005-1.030) Urine Protein (Negative) Urine Ketones (Negative) Urine Blood (Negative) Urine Nitrite (Negative) Urine Bilirubin (Negative) Urine Urobilinogen (0.2) mg/dL Ur Leukocyte Esterase (Negative) U Hyaline Cast (Auto) (0-2) /LPF Urine Microscopic RBC (0-5) /HPF Urine Microscopic WBC (0-5) /HPF Ur Epithelial Cells (None Seen) /HPF Urine Bacteria (None Seen) /HPF Urine Culture Reflexed (NO) Urine Glucose (Negative) mg/dL Influenza Type A Ag NEGATIVE (NEGATIVE) Influenza Type B Ag NEGATIVE (NEGATIVE) RSV (PCR) NEGATIVE (Negative) SARS-CoV-2 (PCR) NEGATIVE (NEGATIVE) 09/17/22 09/17/22 09/17/22 Range/Units 12:43 12:33 12:33 WBC 4.5 (4.0-10.5) x10^3/uL RBC 4.77 (4.1-5.4) x10^6/uL Hgb 14.2 (12.0-16.0) g/dL Hct 42.1 (35-47) % MCV 88.3 (78-100) fL MCH 29.8 (26-32) pg MCHC 33.7 (32-36) g/dL RDW 12.3 (11.5-14.0) % Plt Count 238 (150-450) x10^3/uL MPV 10.0 (7.5-11.0) fL Gran % 70.9 H (36.0-66.0) % Immature Gran % (Auto) 0.4 (0.00-0.4) % Nucleat RBC Rel Count 0.0 (0.00-0.1) % Eos # (Auto) 0.05 (0-0.5) x10^3/uL Immature Gran # (Auto) 0.02 (0.00-0.03) x10^3u/L Absolute Lymphs (auto) 0.66 L (1.0-4.6) x10^3/uL Absolute Monos (auto) 0.56 (0.0-1.3) x10^3/uL Absolute Nucleated RBC 0.00 (0.00-0.01) x10^3u/L Lymphocytes % 14.7 L (24.0-44.0) % Monocytes % 12.5 H (0.0-12.0) % Eosinophils % 1.1 (0.00-5.0) % Basophils % 0.4 (0.0-0.4) % Absolute Granulocytes 3.18 (1.4-6.9) x10^3/uL Basophils # 0.02 (0-0.4) x10^3/uL Sodium 137 (137-145) mmol/L Potassium 4.2 (3.5-5.1) mmol/L Chloride 108 H (98-107) mmol/L Carbon Dioxide 22 (22-30) mmol/L Anion Gap 10.8 (5-15) MEQ/L BUN 10 (7-17) mg/dL Creatinine 0.74 (0.52-1.04) mg/dL Estimated GFR > 60.0 ML/MIN Glucose 94 (74-106) mg/dL Lactic Acid (0.4-2.0) Calcium 9.0 (8.4-10.2) mg/dL Total Bilirubin 0.70 (0.2-1.3) mg/dL AST 59 H (14-36) U/L ALT 25 (0-35) U/L Alkaline Phosphatase 115 (38-126) U/L Serum Total Protein 7.9 (6.3-8.2) g/dL Albumin 4.5 (3.5-5.0) g/dL Amylase 72 (30-110) U/L Lipase 66 (23-300) U/L Serum , Qual (Negative) Urine Color Yellow (Yellow) Urine Appearance Cloudy A (Clear) Urine pH 7.5 (4.6-8.0) Ur Specific [place] 1.025 (1.005-1.030) Urine Protein 30 (Negative) Urine Ketones Trace A (Negative) Urine Blood Large A (Negative) Urine Nitrite Negative (Negative) Urine Bilirubin Negative (Negative) Urine Urobilinogen 0.2 (0.2) mg/dL Ur Leukocyte Esterase Moderate A (Negative) U Hyaline Cast (Auto) 3-5 A (0-2) /LPF Urine Microscopic RBC 6-10 A (0-5) /HPF Urine Microscopic WBC 51-100 A (0-5) /HPF Ur Epithelial Cells Many A (None Seen) /HPF Urine Bacteria Many A (None Seen) /HPF Urine Culture Reflexed YES (NO) Urine Glucose Negative (Negative) mg/dL Influenza Type A Ag (NEGATIVE) Influenza Type B Ag (NEGATIVE) RSV (PCR) (Negative) SARS-CoV-2 (PCR) (NEGATIVE) - Progress Progress: improved Progress Note: 09/17/22 14:54 Pain improved w 15mg IV Toradol 1L NS bolus 1gm IV Rocephin Pt discharged in stable condition 09/17/22 14:55 09/17/22 14:[address] results reviewed and explained to pt Pt to continue Bactrim for 5 days in total 09/17/22 23:14 Will see patient in: office Counseled pt/family regarding: lab results, diagnosis, rad results - Departure Departure Disposition: Home Clinical Impression: UTI (urinary tract infection) Condition: Stable Critical Care Time: No Referrals: STAS SAVAGE MD [Primary Care Provider] - Follow up/PCP as directed Instructions: Urinary Tract Infection, Adult (DC) Additional Instructions: Extend Bactrim DS to 5 days Follow up with cj burroughs MD in 2-3 days Return to ER for increasing pain or temperature greater than 100.5 Prescriptions: Sulfamethoxazole/Trimethoprim [Bactrim Ds Tablet] 1 each PO BID #4 tablet
[2022-09-17 12:49] LABS: Absolute Neutrophil Ct (ANC) 3.18 x10^3/uL (1.4-6.9); Basophil (Absolute #) 0.02 x10^3/uL (0-0.4); Eosinophil % 1.1 % (0.00-5.0); Eosinophil (Absolute #) 0.05 x10^3/uL (0-0.5); Hematocrit 42.1 % (35-47); Hemoglobin 14.2 g/dL (12.0-16.0); Lymphocyte (Absolute #) 0.66 x10^3/uL (1.0-4.6); Lymphocytes % 14.7 % (24.0-44.0); Mean Cell Volume 88.3 fL (78-100); Mean Corpuscular Hemoglobin 29.8 pg (26-32); Mean Corpuscular Hgb Concent. 33.7 g/dL (32-36); Monocyte (Absolute #) 0.56 x10^3/uL (0.0-1.3); Monocytes % 12.5 % (0.0-12.0); Neutrophil % 70.9 % (36.0-66.0); Platelet Count 238 x10^3/uL (150-450); Red Blood Count 4.77 x10^6/uL (4.1-5.4); Red Cell Distribution Width 12.3 % (11.5-14.0); White Blood Count 4.5 x10^3/uL (4.0-10.5)
[2022-09-17] MEDS ORDERED: Zofran 4 MG/2 ML VIAL IV ONE (12:49)
[2022-09-17] MEDS ORDERED: TORAdol 30 mg Injection IV ONE (12:49)
[2022-09-17] MEDS ORDERED: TORAdol 30 mg Injection ONE (12:51)
[2022-09-17] MEDS ORDERED: Zofran 4 MG/2 ML VIAL ONE (12:51)
[2022-09-17 12:52] LABS: Appearance Cloudy (Clear); Bacteria Many /HPF (None Seen); Bilirubin Negative (Negative); Blood Large (Negative); Epithelial Cells Many /HPF (None Seen); Glucose Negative (Negative); Ketones Trace (Negative); Leukocyte Esterase Moderate (Negative); Nitrite Negative (Negative); Ph 7.5 (4.6-8.0); Protein,Urine Dip 30 (Negative); Specific Gravity 1.025 (1.005-1.030); Urobilinogen 0.2 mg/dL (0.2); WBC 51-100 /HPF (0-5)
[2022-09-17 12:53] LABS: ADD URINE CULTURE? YES (NO)
[2022-09-17 13:02] LABS: ALBUMIN 4.5 g/dL (3.5-5.0); ALKALINE PHOSPHATASE 115 U/L (38-126); AMYLASE 72 U/L (30-110); ANION GAP 10.8 MEQ/L (5-15); BLOOD UREA NITROGEN 10 mg/dL (7-17); CHLORIDE 108 mmol/L (98-107); Carbon Dioxide 22 mmol/L (22-30); Creatinine 1 0.74 mg/dL (0.52-1.04); EST GLOMERULAR FILTRATION RATE > 60.0 ML/MIN; Glucose 94 mg/dL (74-106); LIPASE 66 U/L (23-300); Potassium 4.2 mmol/L (3.5-5.1); SGOT/AST 59 U/L (14-36); SGPT/ALT 25 U/L (0-35); SODIUM 137 mmol/L (137-145); Total Protein 7.9 g/dL (6.3-8.2)
[2022-09-17] MEDS ORDERED: Sodium Chloride 0.9% 1000 ML 1,000 ML IV STA (13:10)
[2022-09-17] MEDS ORDERED: Sodium Chloride 0.9% 1000 ML 1,000 ML ONE (13:19)
[2022-09-17 13:35] LABS: INFLUENZA A NEGATIVE (NEGATIVE); INFLUENZA B NEGATIVE (NEGATIVE); RESPIRATORY SYNCTIAL VIRUS NEGATIVE (Negative); SARS-CoV-2 Xpert Express NEGATIVE (NEGATIVE)
[2022-09-17] MEDS ORDERED: ROCEPHIN 1 Gm-D5w 50 ml Bag** 1 G/50 ML IVPB IV STA (14:12)
[2022-09-17] MEDS ORDERED: ROCEPHIN 1 Gm-D5w 50 ml Bag** 1 G/50 ML IVPB IV ONE (14:12)
[2022-09-17 14:49] VITALS: BP 106/60; PULSE 70
[2022-09-17 14:59] VITALS: O2SAT 98
--- NOTE | 2022-09-17 18:22 | XRAY ---
Indication: Low back pain. UTI. Status post IUD removal. Multiple contiguous axial images obtained through the abdomen and pelvis without contrast. Comparison: July 04, 2022 Lung bases remain clear. Heart not enlarged. Noncontrasted stomach and bowel loops nonobstructed. Again appendectomy. Interval IUD removal. Tiny cul-de-sac fluid presumed physiologic from rupture/leaking cyst. Left mid abdomen demonstrates subcentimeter mesenteric nodes with minimal stranding favoring adenitis. Remaining liver, gallbladder, pancreas, spleen, adrenal glands, kidneys, ureters, bladder, uterus, and aorta are unremarkable for noncontrast exam. Osseous structures intact. Impression: 1. Tiny mesenteric nodes with stranding favoring adenitis. 2. Status post IUD removal without complications. 3. Tiny physiologic cul-de-sac fluid. 4. Remaining CT abdomen/pelvis without contrast exam is negative. Comment: Preliminary interpretation made by [facility]. No critical discrepancy.
== END 2022-09-17 15:11 | disposition home or self-care (01) ==
LOC: ED 12:09
DX: N39.0 Urinary tract infection, site not specified (principal); R10.33 Periumbilical pain; R11.2 Nausea with vomiting, unspecified; R19.7 Diarrhea, unspecified; M54.50 Low back pain, unspecified
CPT/HCPCS: 0241U; 36000; 36415; 74176; 80053; 81001; 82150; 83605; 83690; 84703; 85025; 87086; 96360; 96365; 96374; 96375; 99284; J0696; J1885; J2405

== ENCOUNTER 2024-10-08 16:44 | Emergency (ER) | payer BC, OTHER ==
--- NOTE | 2024-10-08 18:44 | ERPHSYRPT ---
- History of Present Illness Source: patient Exam Limitations: no limitations Patient Subjective Stated Complaint: "I've been sick for the past three weeks. I've had this cough and fever and it won't go away." Triage Nursing Assessment: Pt presents to ER with complaints of flu-like symptoms. Cough, fever, nausea x 3 weeks. States cough is productive with green sputum. Pt is alert and oriented x 3. Skin is pale, warm, and dry. Respirations are easy and unlabored. Pt is able to ambulate and communicate without difficulty. Tachycardic and afebrile upon triage. Complains of lower back pain, rates pain 4/10 scale. Pt has had decreased oral intake and decreased appetite. No difficulties urinating. Hx Tetanus, Diphtheria Vaccination/Date Given: No Hx Influenza Vaccination/Date Given: No Hx Pneumococcal Vaccination/Date Given: No Immunizations Up to Date: No <CAMPOS BAKER - Last Filed: 10/08/24 18:40> <ANTONIA JURADO - Last Filed: 10/08/24 21:11> - History of Present Illness Time Seen by Provider: 10/08/24 18:03 Physician History: 24 years old female with history of vaping presented in the ER with complains of flulike symptoms for the last 3 weeks. Patient reports she was having initially nonproductive cough along with sinus/nasal congestion with aches and pains but gradually she is having cough productive of yellow to green sputum. Because of repeated coughing having generalized chest and back soreness. Reports having a temperature of 103 2 days ago. She is currently afebrile. She has been taking Tylenol ibuprofen. Patient reports she feels stopped up in her sinuses and her both years seems popping as if there is a fluid behind. Denies any known sick contact. The last couple of days her symptoms are getting worse. (CAMPOS BAKER) Allergies/Adverse Reactions: No Known Drug Allergies Allergy (Verified 10/08/24 17:15) Travel Risk - International Travel Have you traveled outside of the country in past 3 weeks: No - Emerging Infectious Disease Are you exhibiting symptoms associated with any current EIDs: Yes Symptoms: Cough: New Onset, Fever <CAMPOS BAKER - Last Filed: 10/08/24 18:40> - Review of Systems Constitutional: Fever, Chills, Fatigue Eyes: No Symptoms Ears, Nose, & Throat: Nose Congestion, Sinus Drainage Respiratory: Cough Cardiac: No Symptoms Abdominal/Gastrointestinal: No Symptoms Genitourinary Symptoms: No Symptoms Musculoskeletal: Myalgias Skin: No Symptoms Neurological: Headache Hematologic/Lymphatic: No Symptoms Immunological/Allergic: No Symptoms <CAMPOS BAKER - Last Filed: 10/08/24 18:40> - Past Medical History Pertinent Past Medical History: No - Past Surgical History Past Surgical History: Yes Gastrointestinal: Appendectomy - Female History Hx Last Menstrual Period: 10/08/24 Hx Now: No - Social History Smoking Status: Current every day smoker Exposure to second hand smoke: No Drug Use: none Patient Lives Alone: No - Social Determinants of Health Will the patient participate in the screening: Yes Do you worry about a steady place to live?: No Do you have any problems with any of the following?: No known problems In the past 12 months,have you had to go without utilities?: No Transportation Issues: No Has anyone in your support network made you feel unsafe?: No Have you or anyone in your house had to go without enough: No <CAMPOS BAKER - Last Filed: 10/08/24 18:40> - Physical Exam General Appearance: no apparent distress, alert Eye Exam: PERRL/EOMI Ears, Nose, Throat Exam: moist mucous membranes, pharyngeal erythema Neck Exam: normal inspection, non-tender, supple, full range of motion Respiratory Exam: normal breath sounds, lungs clear Cardiovascular Exam: normal heart sounds, tachycardia Gastrointestinal/Abdomen Exam: soft, normal bowel sounds, No tenderness Extremity Exam: normal inspection Neurologic Exam: alert, oriented x 3, cooperative Skin Exam: normal color SpO2 Interpretation: normal SpO2: 98 O2 Delivery: Room Air <CAMPOS BAKER - Last Filed: 10/08/24 18:40> - Nursing Vital Signs Nursing Vital Signs: Initial Vital Signs Pulse Rate 114 H 10/08/24 17:08 Respiratory Rate 20 10/08/24 17:08 Blood Pressure 115/84 10/08/24 17:08 O2 Sat by Pulse Oximetry 100 10/08/24 17:08 Pain Scale Pain Intensity 2 Ordered Tests: Active Orders 24 hr Category Date Time Status CHEST 1 VIEW (PORTABLE) Stat Exams 10/08/24 18:33 Taken Medication Summary Discontinued Medications Generic Name Dose Route Start Last Admin Trade Name Lucy PRN Reason Stop Dose Admin Ceftriaxone Sodium 1,000 mg 10/08/24 20:27 Ceftriaxone Sodium 1000 Mg Inj Vial IM 10/08/24 20:28 STAT ONE Methylprednisolone Sodium 0 mg 10/08/24 20:27 Succinate 125 mg/ Sterile IM 10/08/24 20:28 Water 2 ml STAT ONE Lab/Rad Data: Laboratory Results 10/08/24 Range/Units 19:05 Influenza Type A Ag NEGATIVE (NEGATIVE) Influenza Type B Ag NEGATIVE (NEGATIVE) RSV (PCR) NEGATIVE (NEGATIVE) SARS-CoV-2 (PCR) NEGATIVE (NEGATIVE) <CAMPOS BAKER - Last Filed: 10/08/24 18:40> - Progress Progress: improved, re-examined Air Movement: good Blood Culture(s) Obtained: No Antibiotics given: Yes Counseled pt/family regarding: lab results, diagnosis, need for follow-up, rad results <ANTONIA JURADO - Last Filed: 10/08/24 21:11> - Progress Progress Note: 10/08/24 18:58 24 years old is evaluated in ER for flulike symptoms for 3 weeks with progressive worsening lately. She has not had any distress, lungs fairly clear to auscultation. She is afebrile. She does have URI with congestion. Workup is pending, care is transferred to Dr. Jurado at end of my shift for reevaluation and final disposition (CAMPOS BAKER) 10/08/24 21:06 I interpreted the patient's laboratory data results. Based on the laboratory data results there are no acute, emergent medical issues. I interpreted the preliminary chest x-ray report on this patient. The patient has right lower lobe infiltrate. (ANTONIA JURADO) Medical Desision Making - Independent Historian Additional History obtained from: Relative/friend - Diagnostic Testing Diagnostic test were ordered, analyzed, and reviewed by me: Yes Radiological Interpretation: Interpreted by me, Teleradiologist Report - Risk of complications The pt has a mod risk of morbidity or mortality based on: Need for prescription drug management <ANTNOIA JURADO - Last Filed: 10/08/24 21:11> <CAMPOS BAKER - Last Filed: 10/08/24 18:40> - Departure Departure Disposition: Home Critical Care Time: No <JURADOGUY LOJADO VernonYenifer - Last Filed: 10/08/24 21:11> - Departure Clinical Impression: Right lower lobe pneumonia Condition: Stable Referrals: DOCTOR,NO FAMILY [Primary Care Provider] - Follow up/PCP as directed Additional Instructions: Drink plenty of fluids. Avoid exposure to any type of smoke. Take your antibiotics and steroids as prescribed. Call your prescribing provider, tomorrow, 10/09/2024, to make arranges for follow-up appointment for further evaluation and management Prescriptions: Prednisone 10 mg [Deltasone 10 mg] 10 mg PO TID #12 tablet Hydrocodone/Acetaminophen [Hydrocodone-Acetamn 7.5-325/15] 10 ml PO Q8H PRN #120 ml MDD 30 ml PRN Reason: Cough Albuterol 8 gm Mdi Hfa [Ventolin Hfa MDI] 8 gm IH Q4H #1 unit Azithromycin 250 mg [Zithromax 250 MG TABLET] 250 mg PO ZPACK #6 tablet
[2024-10-08 20:51] LABS: INFLUENZA A NEGATIVE (NEGATIVE); INFLUENZA B NEGATIVE (NEGATIVE); RESPIRATORY SYNCTIAL VIRUS NEGATIVE (NEGATIVE); SARS-CoV-2 Xpert Express NEGATIVE (NEGATIVE)
[2024-10-08] MEDS ORDERED: Rocephin 1000 MG INJ ONE (21:16)
[2024-10-08] MEDS ORDERED: XYLOCAINE 1% HCL 20 ML MDV ONE (21:17)
[2024-10-08] MEDS ORDERED: Sterile H2O 10 ml IJ ONE (21:21)
[2024-10-08] MEDS ORDERED: solu-MEDROL ONE (21:21)
[2024-10-08] MEDS ORDERED: HYDROCODONE-ACETAMIN 2.5-108/5 ML SOLUTION ONE (21:23)
[2024-10-08] MEDS: Rocephin 1000 MG INJ IM ONE (21:25)
[2024-10-08] MEDS: HYDROCODONE-ACETAMIN 2.5-108/5 ML SOLUTION PO STA (21:29)
[2024-10-08] MEDS: solu-MEDROL 125 MG, Sterile H2O 10 ml 2 ML IM ONE (21:35)
[2024-10-08 21:41] VITALS: BP 119/83; PULSE 104; RESP 18; O2SAT 100
--- NOTE | 2024-10-09 08:35 | XRAY ---
Indication: Cough. Comparison: None Portable chest demonstrates mild right infrahilar infiltrate/atelectasis. Remaining heart, left lung, and bony thorax normal.
== END 2024-10-08 21:51 | disposition home or self-care (01) ==
LOC: ED 16:44
DX: J18.9 Pneumonia, unspecified organism (principal); R50.9 Fever, unspecified; R05.2 Subacute cough; M54.50 Low back pain, unspecified; R07.9 Chest pain, unspecified; Z79.52 Long term (current) use of systemic steroids; Z79.891 Long term (current) use of opiate analgesic; Z79.899 Other long term (current) drug therapy; Z72.0 Tobacco use
CPT/HCPCS: 0241U; 71045; 96372; 99285; 99284; J0696; J2919; A9270-GY

== ENCOUNTER 2025-05-23 08:09 | Emergency (ER) | payer OTHER ==
--- NOTE | 2025-05-23 08:15 | ERPHSYRPT ---
- History of Present Illness Time Seen by Provider: 05/23/25 08:14 Source: patient, family Exam Limitations: no limitations Physician History: This is an overweight 25-year-old white female patient who does not have a primary care provider, is not taking any medication and has no known drug allergies and presents to the emergency department by private vehicle accompanied by family. Patient states that she has had bilateral earaches with the left side being worse than the right for over a month as well as being off balance for the same period of time. Her symptoms are worsening. She did not experience any head injuries. This has never happened to her in the past. She has never seen a primary care provider for these symptoms. Patient denies vomiting and diarrhea symptoms. She denies chest pain. She denies visual changes. She does not have tinnitus. Timing/Duration: gradual onset, weeks (Over a month) Severity: mild ENT Location: ear (R), ear (L) Prearrival Treatment: over the counter meds (Patient drank liquid IV yesterday) Associated Symptoms: ear pain (R), ear pain (L), other (Patient states that she is off balance) Allergies/Adverse Reactions: No Known Drug Allergies Allergy (Verified 05/23/25 08:21) Hx Tetanus, Diphtheria Vaccination/Date Given: No Hx Influenza Vaccination/Date Given: No Hx Pneumococcal Vaccination/Date Given: No Travel Risk - International Travel Have you traveled outside of the country in past 3 weeks: No - Emerging Infectious Disease Are you exhibiting symptoms associated with any current EIDs: Yes Symptoms: Cough: New Onset, Fever - Review of Systems Constitutional: No Symptoms Eyes: No Symptoms Ears, Nose, & Throat: Ear Pain (Bilateral) Respiratory: No Symptoms Cardiac: No Symptoms Abdominal/Gastrointestinal: No Symptoms Genitourinary Symptoms: No Symptoms Musculoskeletal: No Symptoms Skin: No Symptoms Neurological: Other (Off balance for a month) Psychological: No Symptoms Endocrine: No Symptoms Hematologic/Lymphatic: No Symptoms Immunological/Allergic: No Symptoms All Other Systems: Reviewed and Negative - Past Medical History Pertinent Past Medical History: No - Past Surgical History Past Surgical History: Yes Gastrointestinal: Appendectomy - Female History Hx Last Menstrual Period: 10/08/24 - Social History Smoking Status: Current every day smoker Exposure to second hand smoke: No Drug Use: none Patient Lives Alone: No - Social Determinants of Health Will the patient participate in the screening: Yes Do you worry about a steady place to live?: No In the past 12 months,have you had to go without utilities?: No Transportation Issues: No Has anyone in your support network made you feel unsafe?: No Have you or anyone in your house had to go w/o enough food: No - Nursing Vital Signs Nursing Vital Signs: Initial Vital Signs Temperature 97.6 F 05/23/25 08:14 Pulse Rate 105 H 05/23/25 08:14 Blood Pressure 131/82 05/23/25 08:14 O2 Sat by Pulse Oximetry 100 05/23/25 08:14 Pain Scale Pain Intensity 6 - Physical Exam General Appearance: no apparent distress, alert, anxiety, obese Eye Exam: bilateral eye: normal inspection, PERRL, EOMI Ear Exam: bilateral ear: auricle normal, canal normal, TM normal Nasal Exam: normal inspection Throat Exam: normal, pharynx normal, No dental tenderness Neck Exam: normal inspection, non-tender, supple, full range of motion Cardiovascular/Respiratory Exam: chest non-tender, normal breath sounds, regular rate/rhythm, heart sounds normal, no ecchymosis, no JVD, no M/R/G, no respiratory distress Abdominal Exam: non-tender Neurologic Exam: alert, oriented x 3, cooperative, halal butcher II-XII nml as tested, nml cerebellar function, nml station & gait, sensation nml Skin Exam: normal color, warm, dry SpO2 Interpretation: normal O2 Delivery: Room Air - Course Nursing assessment & vital signs reviewed: Yes Ordered Tests: Active Orders 24 hr Category Date Time Status EKG-ER Only STAT Care 05/23/25 08:21 Active IV Insertion STAT Care 05/23/25 08:21 Active HEAD WITHOUT CONTRAST [CT] Stat Exams 05/23/25 08:22 Completed CBC W DIFF Stat Lab 05/23/25 08:38 Completed CMP Stat Lab 05/23/25 08:38 Completed CULTURE,URINE Stat Lab 05/23/25 08:39 Received HCG QUALITATIVE, SERUM Stat Lab 05/23/25 08:38 Completed MAGNESIUM Stat Lab 05/23/25 08:38 Completed UA W/RFX UR CULTURE Stat Lab 05/23/25 08:39 Completed Lab/Rad Data: Laboratory Result Diagrams 05/23/25 08:38 05/23/25 08:38 Laboratory Results 05/23/25 05/23/25 05/23/25 Range/Units 08:39 08:38 08:38 WBC (3.98-10.04) x10^3/uL RBC (3.93-5.22) x10^6/uL Hgb (11.2-15.7) g/dL Hct (34.1-44.9) % MCV (79.4-94.8) fL MCH (25.6-32.2) pg MCHC (32.2-35.5) g/dL RDW (11.7-14.4) % Plt Count (182-369) x10^3/uL MPV (9.4-12.3) fL Gran % (34.0-71.1) % Immature Gran % (Auto) (0.001-0.429) % Nucleat RBC Rel Count (0.00-0.2) % Eos # (Auto) (0.04-0.36) x10^3/uL Immature Gran # (Auto) (0.001-0.031) x10^3u/L Absolute Lymphs (auto) (1.18-3.74) x10^3/uL Absolute Monos (auto) (0.24-0.86) x10^3/uL Absolute Nucleated RBC (0.00-0.012) x10^3u/L Lymphocytes % (19.3-51.7) % Monocytes % (4.7-12.5) % Eosinophils % (0.7-5.8) % Basophils % (0.1-1.2) % Absolute Granulocytes (1.56-6.13) x10^3/uL Basophils # (0.01-0.08) x10^3/uL Sodium 141 (135-145) mmol/L Potassium 3.9 (3.5-5.1) mmol/L Chloride 108 H (98-107) mmol/L Carbon Dioxide 22 (22-30) mmol/L Anion Gap 14.9 (5-15) MEQ/L BUN 14 (7-17) mg/dL Creatinine 0.83 (0.52-1.04) mg/dL Estimated GFR 99.0 ML/MIN Glucose 95 (74-106) mg/dL Calcium 9.6 (8.4-10.2) mg/dL Magnesium 1.9 (1.6-2.3) mg/dL Total Bilirubin 0.40 (0.2-1.3) mg/dL AST 29 (14-36) U/L ALT 28 (0-35) U/L Alkaline Phosphatase 116 (38-126) U/L Serum Total Protein 8.3 H (6.3-8.2) g/dL Albumin 4.7 (3.5-5.0) g/dL Serum HCG, Qual NEGATIVE (NEGATIVE) Urine Color Yellow (Yellow) Urine Appearance Clear (Clear) Urine pH 6.5 (4.6-8.0) Ur Specific [place] 1.025 (1.005-1.030) Urine Protein 30 (Negative) Urine Glucose (UA) Negative (Negative) mg/dL Urine Ketones Negative (Negative) Urine Blood Negative (Negative) Urine Nitrite Negative (Negative) Urine Bilirubin Negative (Negative) Urine Urobilinogen 1.0 A (0.2) mg/dL Ur Leukocyte Esterase Small A (Negative) U Hyaline Cast (Auto) 3-5 A (0-2) /LPF Urine Microscopic RBC 0-2 (0-5) /HPF Urine Microscopic WBC 6-10 A (0-5) /HPF Ur Epithelial Cells Few (None Seen) /HPF Urine Bacteria Few A (None Seen) /HPF Urine Culture Reflexed YES (NO) 05/23/25 Range/Units 08:38 WBC 7.1 (3.98-10.04) x10^3/uL RBC 4.70 (3.93-5.22) x10^6/uL Hgb 14.0 (11.2-15.7) g/dL Hct 42.2 (34.1-44.9) % MCV 89.8 (79.4-94.8) fL MCH 29.8 (25.6-32.2) pg MCHC 33.2 (32.2-35.5) g/dL RDW 12.0 (11.7-14.4) % Plt Count 259 (182-369) x10^3/uL MPV 10.0 (9.4-12.3) fL Gran % 69.9 (34.0-71.1) % Immature Gran % (Auto) 0.7 H (0.001-0.429) % Nucleat RBC Rel Count 0.0 (0.00-0.2) % Eos # (Auto) 0.07 (0.04-0.36) x10^3/uL Immature Gran # (Auto) 0.05 H (0.001-0.031) x10^3u/L Absolute Lymphs (auto) 1.55 (1.18-3.74) x10^3/uL Absolute Monos (auto) 0.43 (0.24-0.86) x10^3/uL Absolute Nucleated RBC 0.00 (0.00-0.012) x10^3u/L Lymphocytes % 21.9 (19.3-51.7) % Monocytes % 6.1 (4.7-12.5) % Eosinophils % 1.0 (0.7-5.8) % Basophils % 0.4 (0.1-1.2) % Absolute Granulocytes 4.94 (1.56-6.13) x10^3/uL Basophils # 0.03 (0.01-0.08) x10^3/uL Sodium (135-145) mmol/L Potassium (3.5-5.1) mmol/L Chloride (98-107) mmol/L Carbon Dioxide (22-30) mmol/L Anion Gap (5-15) MEQ/L BUN (7-17) mg/dL Creatinine (0.52-1.04) mg/dL Estimated GFR ML/MIN Glucose (74-106) mg/dL Calcium (8.4-10.2) mg/dL Magnesium (1.6-2.3) mg/dL Total Bilirubin (0.2-1.3) mg/dL AST (14-36) U/L ALT (0-35) U/L Alkaline Phosphatase (38-126) U/L Serum Total Protein (6.3-8.2) g/dL Albumin (3.5-5.0) g/dL Serum HCG, Qual (NEGATIVE) Urine Color (Yellow) Urine Appearance (Clear) Urine pH (4.6-8.0) Ur Specific [place] (1.005-1.030) Urine Protein (Negative) Urine Glucose (UA) (Negative) mg/dL Urine Ketones (Negative) Urine Blood (Negative) Urine Nitrite (Negative) Urine Bilirubin (Negative) Urine Urobilinogen (0.2) mg/dL Ur Leukocyte Esterase (Negative) U Hyaline Cast (Auto) (0-2) /LPF Urine Microscopic RBC (0-5) /HPF Urine Microscopic WBC (0-5) /HPF Ur Epithelial Cells (None Seen) /HPF Urine Bacteria (None Seen) /HPF Urine Culture Reflexed (NO) - Progress Progress: unchanged Progress Note: 05/23/25 08:31 My medical decision making and the assignment of moderate complexity of this patient's medical issue today is based on review of the patient's past medical history, review the patient's medication list, review the patient drug allergy list, history present illness and physical findings on examination. The workup in this patient includes placement of intravenous line, twelve-lead EKG, urinalysis, magnesium level, hCG level, CBC, CMP, CT scan of the head without contrast. Differential diagnosis includes but is not limited to anxiety/stress, electrolyte abnormalities, dehydration, urinary tract infection, , arrhythmia, acute intracranial abnormality 05/23/25 09:[address] scan of the head was interpreted by the radiologist and I reviewed the impression. The impression state: No acute intracranial abnormality. Opacified bilateral mastoid air cells and partial opacification of left middle ear cavity. Possible otomastoiditis. In addition there is right maxillary acute sinusitis 05/23/25 09:32 I interpreted the patient's laboratory data results. Based on laboratory data results, the patient does have a mild, early urinary tract infection. There are no other acute, emergent medical issues based on the laboratory data results Counseled pt/family regarding: lab results, diagnosis, need for follow-up, rad results Medical Desision Making - Independent Historian Additional History obtained from: Spouse - Diagnostic Testing Diagnostic test were ordered, analyzed, and reviewed by me: Yes Radiological Interpretation: Reviewed by me, Teleradiologist Report - Risk of complications Low Risk: Low risk of morbidity from additional dx testing or treatment The pt has a mod risk of morbidity or mortality based on: Need for prescription drug management - Departure Departure Disposition: Home Clinical Impression: UTI (urinary tract infection), Mastoiditis of both sides, Maxillary sinusitis, acute Condition: Stable Critical Care Time: No Referrals: DOCTOR,NO FAMILY [Primary Care Provider, UNKNOWN] - Follow up/PCP as directed Additional Instructions: Drink plenty of fluids. Take your antibiotics and steroids as prescribed. Call the primary care provider on 05/25/2025, to make arrangements for follow- up appointment for further evaluation and management including discussing referral to research electrician. Prescriptions: Amox Tr/Potass Clav. 875 mg [Augmentin 875-125 Tablet] 875 mg PO BID 7 Days #14 tablet Prednisone 10 mg [Deltasone 10 mg] 10 mg PO TID #12 tablet
[2025-05-23 08:20] VITALS: PULSE 105; TEMP 97.6
[2025-05-23 08:39] LABS: BASOPHIL % 0.4 % (0.1-1.2); Basophil (Absolute #) 0.03 x10^3/uL (0.01-0.08); Eosinophil (Absolute #) 0.07 x10^3/uL (0.04-0.36); Hematocrit 42.2 % (34.1-44.9); Hemoglobin 14.0 g/dL (11.2-15.7); IMMATURE GRAN # 0.05 x10^3u/L (0.001-0.031); IMMATURE GRAN % 0.7 % (0.001-0.429); Lymphocyte (Absolute #) 1.55 x10^3/uL (1.18-3.74); Mean Corpuscular Hemoglobin 29.8 pg (25.6-32.2); Mean Corpuscular Hgb Concent. 33.2 g/dL (32.2-35.5); Monocyte (Absolute #) 0.43 x10^3/uL (0.24-0.86); NUCLEATED RBC # 0.00 x10^3u/L (0.00-0.012); NUCLEATED RBC % 0.0 % (0.00-0.2); Platelet Count 259 x10^3/uL (182-369); Red Blood Count 4.70 x10^6/uL (3.93-5.22); White Blood Count 7.1 x10^3/uL (3.98-10.04)
[2025-05-23 08:52] LABS: Calcium 9.6 mg/dL (8.4-10.2); Carbon Dioxide 22.0 mmol/L (22-30); Creatinine 1 0.83 mg/dL (0.52-1.04); EST GLOMERULAR FILTRATION RATE 99.0 ML/MIN; Glucose 95.0 mg/dL (74-106); HCG SERUM TEST NEGATIVE (NEGATIVE); Potassium 3.9 mmol/L (3.5-5.1); SGOT/AST 29.0 U/L (14-36); SGPT/ALT 28.0 U/L (0-35); Total Protein 8.3 g/dL (6.3-8.2)
[2025-05-23 09:13] LABS: Glucose, Urine Negative (Negative); Protein,Urine Dip 30 (Negative); RBC 0-2 /HPF (0-5)
--- NOTE | 2025-05-23 09:21 | XRAY ---
CLINICAL HISTORY: B earaches; off balance COMPARISON: None. TECHNIQUE: Axial non-contrast CT scan of the brain was performed from the skull base to the high parietal region. One of the following dose reduction techniques were utilized for this exam: Automated exposure control, adjustment of the mA and/or kV according to patient size, use of iterative reconstruction. CTDI: 53.92 mGy, DLP: 923.71 mGy-cm. FINDINGS: Brain Parenchyma: Normal attenuation of the cerebral hemispheres, cerebellum, and brainstem. No evidence of acute infarct, hemorrhage, or mass effect. No abnormal areas of hypo- or hyperattenuation. Ventricular System: Ventricles are normal in size and configuration. No evidence of hydrocephalus or ventricular enlargement. Subarachnoid Spaces: Normal sulci and cisterns. No evidence of subarachnoid hemorrhage or extra-axial fluid collections. Cerebellum and Brainstem: No masses, lesions, or areas of abnormal density. Orbits: Normal appearance of the globes, optic nerves, and extraocular muscles. No evidence of orbital masses or abnormal density. Sinuses: Opacified right maxillary sinus with fluid level, suggesting acute right maxillary sinusitis Clear paranasal sinuses. No evidence of sinusitis or mucosal thickening. Mastoid Air Cells: Bilateral mastoid air cells opacification, suggesting bilateral mastoiditis Partial opacification of the left middle ear cavity is also seen, which could be due to an infectious process as well Skull: Normal skull morphology. IMPRESSION: 1. No acute intracranial abnormality. 2. Opacified bilateral mastoid air cells and partial opacification of left middle ear cavity, raising concern for otomastoiditis, clinical correlation and if needed dedciated CT study of temporal bone advised. 3. Right maxillary acute sinusitis. Electronically Signed by: Axel Handy MD. (05/23/2025 09:19:33 EDT)
[2025-05-23] MEDS ORDERED: Rocephin 1000 MG INJ ONE (09:49)
[2025-05-23] MEDS ORDERED: Sterile H2O 10 ml IJ ONE (09:49)
[2025-05-23] MEDS: Rocephin 1000 MG INJ IM ONE (09:57)
[2025-05-23] MEDS: solu-MEDROL 125 MG, Sterile H2O 10 ml 2 ML IM ONE (09:57)
[2025-05-23] MEDS: ROCEPHIN 1 GM / 100 ML NaCl 1 GM/100 ML IVPB IV ONE (10:02)
[2025-05-23] MEDS: solu-MEDROL 125 MG, Sterile H2O 10 ml 2 ML IV ONE (10:03)
[2025-05-23 10:15] VITALS: BP 109/64; O2SAT 98
== END 2025-05-23 10:24 | disposition home or self-care (01) ==
LOC: ED 08:09
DX: H70.93 Unspecified mastoiditis, bilateral (principal); N39.0 Urinary tract infection, site not specified; J01.00 Acute maxillary sinusitis, unspecified; H92.03 Otalgia, bilateral; Z79.52 Long term (current) use of systemic steroids; Z79.899 Other long term (current) drug therapy

== ENCOUNTER 2025-06-02 17:35 | Emergency (ER) | payer OTHER ==
[2025-06-02 18:30] VITALS: TEMP 98.3
[2025-06-02 19:14] VITALS: RESP 17
--- NOTE | 2025-06-02 19:29 | ERPHSYRPT ---
- History of Present Illness Time Seen by Provider: 06/02/25 19:15 Source: patient Exam Limitations: no limitations Patient Subjective Stated Complaint: pt reports she was seen at this ED on 05/23/25 and dx with mastoiditis, states she took her entire PO course of antibiotics and felt improved for 1-2 days then her s/s worsened. today pt c/o tenderness to the right side of her head that is increased with palpation and a fullness to her left ear. pt denies fever. Triage Nursing Assessment: pt is aox3, pupils perrl, speech is clear, appropriate, afebrile, resps easy and non labored, cap refill < 3 seconds, radial pulses strong and equal, pt skin pink warm dry. pt left external ear canal appears normal, left ear drum appears to be bulging. no drainge noted. Physician History: This is an obese 25-year-old white female patient who arrives in private vehicle accompanied by her spouse who was seen by her primary care provider today and no action was taken, per patient, to help relieve her symptoms of right sided headache and the left ear ache. Patient was seen in our facility on 05/23/2025 in the emergency department and was diagnosed with right maxillary sinusitis and otomastoiditis. She was given a prescription of Augmentin and prednisone and instructed to follow-up with her primary care provider and to be referred to square shear operator. On that therapy, the patient states that over the next couple of days after that visit she was improving. However her symptoms recurred turned and has pain in the left ear and right side of her head. She denies visual changes. Timing/Duration: day(s) (Symptoms over the last 8 days have worsened), worse Quality: aching (Left earache and right muslim pain) Head Pain Location: temporal (Right side) Recent Head Trauma: no recent headache/trauma Associated Symptoms: denies symptoms Allergies/Adverse Reactions: No Known Drug Allergies Allergy (Verified 06/02/25 18:30) Hx Tetanus, Diphtheria Vaccination/Date Given: No Hx Influenza Vaccination/Date Given: No Hx Pneumococcal Vaccination/Date Given: No Immunizations Up to Date: No Travel Risk - International Travel Have you traveled outside of the country in past 3 weeks: No - Emerging Infectious Disease Are you exhibiting symptoms associated with any current EIDs: No Symptoms: Cough: New Onset, Fever - Review of Systems Constitutional: No Symptoms Eyes: No Symptoms Ears, Nose, & Throat: Ear Pain (Left ear pain), No Ear Discharge, No Hearing Changes Respiratory: No Symptoms Cardiac: No Symptoms Abdominal/Gastrointestinal: No Symptoms Genitourinary Symptoms: No Symptoms Musculoskeletal: No Symptoms Skin: No Symptoms Neurological: Headache (Right side temporal headache) Psychological: No Symptoms Endocrine: No Symptoms Hematologic/Lymphatic: No Symptoms Immunological/Allergic: No Symptoms All Other Systems: Reviewed and Negative - Past Medical History Pertinent Past Medical History: No - Past Surgical History Past Surgical History: Yes Gastrointestinal: Appendectomy - Female History Hx Last Menstrual Period: 05/09/25 Hx Now: No - Social History Smoking Status: Current every day smoker Exposure to second hand smoke: No Drug Use: none - Social Determinants of Health Will the patient participate in the screening: Yes Do you worry about a steady place to live?: No Do you have any problems with any of the following?: No known problems In the past 12 months,have you had to go without utilities?: No Transportation Issues: No Has anyone in your support network made you feel unsafe?: No Have you or anyone in your house had to go w/o enough food: No - Nursing Vital Signs Nursing Vital Signs: Initial Vital Signs Temperature 98.3 F 06/02/25 18:23 Pulse Rate 88 06/02/25 18:23 Respiratory Rate 20 06/02/25 18:23 Blood Pressure 133/83 06/02/25 18:23 O2 Sat by Pulse Oximetry 100 06/02/25 18:23 Pain Scale Pain Intensity 0 - Physical Exam General Appearance: no apparent distress, alert, anxiety, obese Eye Exam: PERRL/EOMI, eyes nml inspection Ears, Nose, Throat Exam: moist mucous membranes, TM abnormal (L) (Mild fullness to the left tympanic membrane) Neck Exam: normal inspection, non-tender, supple, full range of motion Respiratory Exam: normal breath sounds, lungs clear, airway intact, No chest tenderness, No respiratory distress Cardiovascular Exam: regular rate/rhythm, normal heart sounds, normal peripheral pulses Gastrointestinal/Abdominal Exam: No tenderness Back Exam: normal inspection, normal range of motion, No CVA tenderness, No vertebral tenderness Extremity Exam: normal inspection, normal range of motion, pelvis stable Mental Status Exam: alert, oriented x 3, 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 Exam: normal hearing, normal speech, PERRL, abnormal eye position, tongue midline Coordination/Gait Exam: normal gait, normal cerebellar function Motor/Sensory Exam: no motor deficit, no sensory deficit Skin Exam: normal color, warm, dry Lymphatic Exam: No adenopathy SpO2 Interpretation: normal SpO2: 100 O2 Delivery: Room Air - Course Nursing assessment & vital signs reviewed: Yes Ordered Tests: Active Orders 24 hr Category Date Time Status IV Insertion STAT Care 06/02/25 20:04 Active HEAD WITHOUT CONTRAST [CT] Stat Exams 06/02/25 19:27 Ordered Medication Summary Discontinued Medications Generic Name Dose Route Start Last Admin Trade Name Manuelq PRN Reason Stop Dose Admin Hydrocodone Bitart/Acetaminophen 1 tab 06/02/25 19:28 06/02/25 19:41 Hydrocodone/Apap 5/325 1 Tab Tablet PO 06/02/25 19:29 Not Given STAT ONE Ceftriaxone Sodium 1,000 mg 06/02/25 19:28 06/02/25 19:41 Ceftriaxone Sodium 1000 Mg Inj Vial IM 06/02/25 19:29 Not Given STAT ONE Methylprednisolone Sodium 0 mg 06/02/25 19:28 06/02/25 19:41 Succinate 125 mg/ Sterile IM 06/02/25 19:29 Not Given Water 2 ml STAT ONE Methylprednisolone Sodium 0 mg 06/02/25 19:30 06/02/25 19:40 Succinate 125 mg/ Sterile IV 06/02/25 19:31 125 mg Water 2 ml STAT ONE Administration Hydromorphone HCl 1 mg 06/02/25 19:31 06/02/25 19:39 Hydromorphone 1 Mg/1ml Inj IV 06/02/25 19:32 1 mg STAT ONE Administration Hydromorphone HCl Confirm 06/02/25 19:38 Hydromorphone 1 Mg/1ml Inj Administered 06/02/25 19:39 Dose 1 mg .ROUTE .STK-MED ONE Ceftriaxone Sodium 1 gm in 100 mls @ 200 mls/hr 06/02/25 19:30 06/02/25 20:14 Rocephin 1 Gm / 100 Ml Nacl IV 06/02/25 19:59 Infused STAT ONE Infusion Ceftriaxone Sodium Confirm 06/02/25 19:38 Rocephin 1 Gm / 100 Ml Nacl Administered 06/02/25 19:39 Dose 1 gm in 100 mls @ ud IV .STK-MED ONE Methylprednisolone Sodium Succinate Confirm 06/02/25 19:38 Methylprednis Sod Succ 125 Mg/2 Ml Vial Administered 06/02/25 19:39 Dose 125 mg .ROUTE .STK-MED ONE Ondansetron HCl 4 mg 06/02/25 19:31 06/02/25 19:39 Ondansetron Hcl 4 Mg/2 Ml Vial IV 06/02/25 19:32 4 mg STAT ONE Administration Ondansetron HCl Confirm 06/02/25 19:38 Ondansetron Hcl 4 Mg/2 Ml Vial Administered 06/02/25 19:39 Dose 4 mg .ROUTE .STK-MED ONE Sterile Water Confirm 06/02/25 19:38 Water For Injection,Sterile 10 Ml Vial Administered 06/02/25 19:39 Dose 10 ml IJ .STK-MED ONE - Progress Progress: improved, re-examined Air Movement: good Progress Note: 06/02/25 20:14 My medical decision making and assignment of moderate complexity of this patient's medical issue today is based on review of the patient's past medical history, review the patient's medication list, reviewed patient drug allergy list, history of present illness and physical findings on examination. The workup in this patient includes, at the request of the patient, repeat CT scan of the head without contrast. We will also provide the patient with an injection of intravenous Rocephin, intravenous Solu-Medrol and oral Steele 5/325. Differential diagnosis includes was not limited to worsening sinusitis, worsening otitis media, worsening mastoiditis, other acute intracranial abnormality 06/02/25 21:[address] scan of the head without contrast was interpreted by the radiologist and I reviewed the impression. Depression states bilateral mastoiditis is improved when compared to similar study performed approximately 10 days ago. Blood Culture(s) Obtained: No Antibiotics given: Yes Counseled pt/family regarding: diagnosis, need for follow-up, rad results Medical Desision Making - Independent Historian Additional History obtained from: Spouse - Diagnostic Testing Diagnostic test were ordered, analyzed, and reviewed by me: Yes Radiological Interpretation: Reviewed by me, Teleradiologist Report - Risk of complications The pt has a mod risk of morbidity or mortality based on: Need for prescription drug management - Departure Departure Disposition: Home Clinical Impression: Earache, left, Headache, Acute bilateral mastoiditis Condition: Stable Critical Care Time: No Referrals: DOCTOR,NO FAMILY [NON-STAFF PHY W/O PRIVILEGES, UNKNOWN] - Follow up/PCP as directed Additional Instructions: Drink plenty of clear liquids. Take your antibiotics and steroids as prescribed. Call square shear operator tomorrow, 06/03/2025, to make an appointment to be seen in the next 3 to 5 days. If your symptoms worsen, go to the nearest emergency department where there is an square shear operator on-call. We are providing you with square shear operator contact information Prescriptions: Hydrocodone/APAP 5/325 [Steele 5/325 mg] 1 each PO Q8H PRN PRN #6 tablet MDD 3 PRN Reason: Pain Prednisone 10 mg [Deltasone 10 mg] 10 mg PO TID #12 tablet Azithromycin 250 mg [Zithromax 250 MG TABLET] 250 mg PO ZPACK #6 tablet
[2025-06-02] MEDS ORDERED: ROCEPHIN 1 GM / 100 ML NaCl 1 GM/100 ML IVPB IV ONE (19:38)
[2025-06-02] MEDS ORDERED: Hydromorphone 1 mg/ml Injection ONE (19:38)
[2025-06-02] MEDS ORDERED: Sterile H2O 10 ml IJ ONE (19:38)
[2025-06-02] MEDS ORDERED: Zofran 4 MG/2 ML VIAL ONE (19:38)
[2025-06-02] MEDS: Hydromorphone 1 mg/ml Injection IV ONE (19:39)
[2025-06-02] MEDS: Zofran 4 MG/2 ML VIAL IV ONE (19:39)
[2025-06-02] MEDS: solu-MEDROL 125 MG, Sterile H2O 10 ml 2 ML IV ONE (19:40)
[2025-06-02] MEDS: ROCEPHIN 1 GM / 100 ML NaCl 1 GM/100 ML IVPB IV ONE (19:40)
[2025-06-02] MEDS: solu-MEDROL 125 MG, Sterile H2O 10 ml 2 ML IM ONE (19:41)
[2025-06-02] MEDS: Rocephin 1000 MG INJ IM ONE (19:41)
[2025-06-02] MEDS: NORCO 5/325 MG PO ONE ×2 (19:41→21:30)
[2025-06-02 20:17] VITALS: PULSE 81
[2025-06-02 20:18] VITALS: O2SAT 100
[2025-06-02 21:28] VITALS: BP 116/73
[2025-06-02] MEDS ORDERED: NORCO 5/325 MG ONE (21:29)
--- NOTE | 2025-06-03 08:43 | XRAY ---
Indication: Right headache. Mastoiditis. Multiple contiguous axial images obtained through the head without contrast. Comparison: May 20, 2025 Normal appearing brain parenchyma, ventricles, and bony calvarium. Previous left otomastoiditis and right mastoiditis improved with minimal residual bilaterally. Stable small fluid leveling right maxillary sinus. Impression: Improving left otomastoiditis and right mastoiditis as detailed. Again right maxillary sinus disease. Remaining CT head without contrast exam continues to be normal.
== END 2025-06-02 21:36 | disposition home or self-care (01) ==
LOC: ED 17:35
DX: H92.02 Otalgia, left ear (principal); R51.9 Headache, unspecified; H70.003 Acute mastoiditis without complications, bilateral; Z79.52 Long term (current) use of systemic steroids; Z79.891 Long term (current) use of opiate analgesic; Z79.899 Other long term (current) drug therapy; Z72.0 Tobacco use